=== PATIENT | male | born 2005 | race Caucasian/White ===

== ENCOUNTER 2023-03-09 19:56 | Emergency (ER) | payer BC, OTHER ==
[2023-03-09 19:59] VITALS: BP 130/70; PULSE 74
[2023-03-09] MEDS ORDERED: Diphtheria,Pertussis(Acell),Tetanus Vaccine 0.5 ML Syringe IM ONE (20:21)
[2023-03-09] MEDS ORDERED: Cephalexin 500 MG Cap PO ONE (20:22)
[2023-03-09] MEDS ORDERED: Bacitracin Oint 1 GM U/D Packet TOP ONE (20:31)
== END 2023-03-09 20:40 | disposition home or self-care (01) ==
LOC: LL.ED 19:56
DX: S51.832A Puncture wound without foreign body of left forearm, initial encounter (principal); Z23 Encounter for immunization; W45.0XXA Nail entering through skin, initial encounter
CPT/HCPCS: 90471; 90715; 99282-25; 99283; A9270-GY

== ENCOUNTER 2024-09-03 20:26 | Emergency (ER) | payer BC ==
[2024-09-03] MEDS: cefTRIAXone 1 GM Vial IM ONE (20:39)
[2024-09-03] MEDS: Lidocaine 1% 5 ML VIAL INJECT ONE (20:39)
[2024-09-03] MEDS: Take Home: Cephalexin 500 MG Cap, 6 Cap Pack PO ONE (20:54)
[2024-09-03 21:10] VITALS: BP 130/76; PULSE 80
== END 2024-09-03 21:05 | disposition home or self-care (01) ==
LOC: LL.ED 20:26
DX: L03.012 Cellulitis of left finger (principal)
CPT/HCPCS: 96372; 99283; A9270-GY; J0696; J3490